=== PATIENT | female | born 1980 | race Caucasian/White ===

== ENCOUNTER → 2019-10-18 | Outpatient (CLI) | payer OTHER ==
[~2019-10-18] MED LIST: CARVEDILOL25 MG PO; FUROSEMIDE 20 M20 M1 PO; VITAMIN D
== END ==
LOC: M.LAB 10:33
PROVIDERS: ATTEND Surgery
DX: Z01.812 Encounter for preprocedural laboratory examination (principal); Z11.59 Encounter for screening for other viral diseases; N18.6 End stage renal disease

== ENCOUNTER → 2019-10-23 | Day surgery (SDC) | payer OTHER ==
[~2019-10-23] MED LIST changes: +LORCET 5-325 M1 EACH PO
--- NOTE | ~2019-10-23 | OP ---
[address] [address] OPERATIVE REPORT Name: ALEX THOMPSON Room: [facility]#: [id number] Admission: 10/23/19 Attend Phys: Cruz Dewey Discharge: Date of : 78 Report #: [id number] THIS REPORT FOR: //name// cc: Meryl Lakhani Melanie A. FNP THIS REPORT FOR: //name// CC: Cruz Lakhani DATE OF SERVICE: 10/23/2019 PREOPERATIVE DIAGNOSIS: End-stage renal disease. POSTOPERATIVE DIAGNOSIS: End-stage renal disease. OPERATION: Laparoscopic placement of tunneled intraperitoneal catheter. SURGEON: Cruz Dewey MD ANESTHESIA: General. ESTIMATED BLOOD LOSS: 20 mL. SPECIMEN: None. DESCRIPTION OF PROCEDURE: After informed consent was obtained, the patient was brought to the operating room and placed supine. SCDs were placed and working, preoperative antibiotics were administered, general anesthesia was induced. The abdomen was prepped and draped in the usual sterile fashion. A 5 mm incision was made in the left upper quadrant. Veress needle was inserted. Pneumoperitoneum was established. A 5 mm trocar was placed in the left upper quadrant under direct vision. A left-sided 5 mm trocar was placed. There was some bleeding in the omentum. The omentum was then grasped. She had very dilated omental vessels. The small area of bleeding was grasped and the LigaSure device was used to cauterize the area and there was excellent hemostasis. Approximately 20 mL of blood was suctioned out. An 8 mm trocar was then placed in the left rectus sheath. A 62 cm Covidien catheter was inserted. Catheter was then pulled back, so that the internal cuff was in the left rectus sheath. Catheter was then tunneled to the left upper quadrant of the abdomen. The catheter flushed easily with 750 mL of heparinized saline. It drained easily as well. The ports were then removed under direct vision. Skin was closed with 4-0 Monocryl. [place] [address] OPERATIVE REPORT Name: ALEX THOMPSON Room: [facility]#: [id number] Admission: 10/23/19 Attend Phys: Cruz Dewey Discharge: Date of : 78 Report #: [id number] Steri-Strips and sterile gauze. Sterile dressings were applied. COMPLICATIONS: None. DISPOSITION: The patient was taken to recovery in satisfactory condition. By: [id number] Dewey MD /alo
[2019-10-23 07:26] LABS: HEMOGLOBIN 8.6 gm/dL (12.0-15.0); MCH 30.8 pg (26.0-34.0); MCHC 34.4 g/dL (28.0-37.0); MCV 89.6 fL (80.0-100.0); MPV 10.7 fl. (7.2-11.1); RBC 2.79 mil/uL (4.20-5.00); RDW-CV 13.9 % (10.5-14.5)
[2019-10-23 07:30] LABS: CALCIUM 7.6 mg/dL (8.5-10.1); CREATININE 5.7 mg/dL (0.6-1.3); POTASSIUM 4.6 mmol/L (3.5-5.1)
--- NOTE | 2019-10-24 17:34 | EKG ---
[place] [address] ELECTROCARDIOGRAM REPORT Name: ALEX THOMPSON Room: 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
== END | disposition short-term general hospital (02) ==
LOC: M.SUR 06:51
PROVIDERS: ATTEND Surgery
DX: I12.0 Hypertensive chronic kidney disease with stage 5 chronic kidney disease or end stage renal disease (principal); N18.6 End stage renal disease; Z79.899 Other long term (current) drug therapy; Z98.890 Other specified postprocedural states

== ENCOUNTER → 2020-06-07 | Day surgery (SDC) | payer OTHER, MEDICAID ==
[~2020-06-07] MED LIST changes: +BACTRIM DS TAB1 EAC1 PO; +NORCO5 PO
--- NOTE | ~2020-06-07 | OP ---
[facility] [address] [place] [address] OPERATIVE REPORT Name: ALEX THOMPSON Room: [facility]#: [id number] Admission: 06/07/20 Attend Phys: Cruz Dewey Discharge: Date of : 78 Report #: [id number] THIS REPORT FOR: cc: Meryl Lakhani Melanie A. FNP Patterson, Jonathan D. MD ~ DATE OF SERVICE: 06/07/2020 PREOPERATIVE DIAGNOSIS: Malfunctioning peritoneal catheter. POSTOPERATIVE DIAGNOSES: Malfunctioning peritoneal catheter. PROCEDURE: Laparoscopic revision of peritoneal catheter with removal of obstructive material. SURGEON: Cruz Dewey MD ANESTHESIA: General. ESTIMATED BLOOD LOSS: Minimal. SPECIMEN: None. DESCRIPTION OF PROCEDURE: After informed consent was obtained, the patient was brought to the operating room and placed supine. SCDs were placed and working, preoperative antibiotics were administered, general anesthesia was induced. The abdomen was prepped and draped in the usual sterile fashion. A 5 mm incision was made in the left upper quadrant. A 5 mm trocar was inserted. Pneumoperitoneum was established. A catheter was examined and was down in the pelvis and in good position. The catheter was then taken and a new incision was made 3 cm from the exit site. Catheter was then tunneled to this new exit site. The previous opening site was closed with a [id number] 0 Vicryl. The laparoscopic incision was closed with a 4-0 Monocryl. Incisions were sealed with Steri-Strips. COMPLICATIONS: None. DISPOSITION: The patient was taken to recovery in satisfactory condition. By: [id number] Dewey MD /nt
[2020-06-07 12:14] LABS: HEMATOCRIT 40.7 % (37.0-47.0); HEMOGLOBIN 13.3 gm/dL (12.0-15.0); MCH 28.8 pg (26.0-34.0); MCHC 32.6 g/dL (28.0-37.0); MCV 88.3 fL (80.0-100.0); RBC 4.61 mil/uL (4.20-5.00); RDW-CV 13.9 % (10.5-14.5); WBC 7.8 thou/uL (4.0-11.0)
[2020-06-07 12:17] LABS: URINE BILIRUBIN NEGATIVE (Negative); URINE BLOOD 1+ (Negative); URINE CLARITY SL CLOUDY; URINE COLOR YELLOW; URINE GLUCOSE-RANDOM 3+ (Negative); URINE KETONES NEGATIVE (Negative); URINE LEUKOCYTES-REFLEX TRACE (Negative); URINE NITRITE-REFLEX NEGATIVE (Negative); URINE PROTEIN 3+ (Negative); URINE SPECIFIC GRAVITY 1.025 (1.005-1.030); URINE UROBILINOGEN 0.2 E.U./dl (0.2-1.0)
[2020-06-07 12:22] LABS: CALCIUM 7.3 mg/dL (8.5-10.1); POTASSIUM 4.5 mmol/L (3.5-5.1); SQUAMOUS 4-10 Moderate /LPF (0-3)
[2020-06-07 12:23] LABS: URINE WBC-REFLEX >25 Many /HPF (0-5); WBC CLUMPS Moderate (None Seen)
[2020-06-07 12:24] LABS: BACTERIA-REFLEX >30 Many /HPF (None Seen); CASTS None Seen /LPF (None Seen); CRYSTALS None Seen /LPF (None Seen); MUCUS None Seen strn/LPF (None Seen); URINE RBC 3-10 Few /HPF (0-2)
[2020-06-07 12:27] LABS: ALBUMIN 2.2 g/dL (3.4-5.0); TOTAL BILIRUBIN 0.5 mg/dL (<0.1-1.0); TOTAL PROTEIN 5.6 g/dL (6.4-8.2)
--- NOTE | 2020-06-07 14:55 | EKG ---
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
== END | disposition home or self-care (01) ==
LOC: M.SUR 05:22
PROVIDERS: ATTEND Surgery
DX: T85.691A Other mechanical complication of intraperitoneal dialysis catheter, initial encounter (principal); I12.0 Hypertensive chronic kidney disease with stage 5 chronic kidney disease or end stage renal disease; N18.6 End stage renal disease; Z98.890 Other specified postprocedural states; Z79.899 Other long term (current) drug therapy; Y83.8 Other surgical procedures as the cause of abnormal reaction of the patient, or of later complication, without mention of misadventure at the time of the procedure; Z20.822 Contact with and (suspected) exposure to COVID-19